=== PATIENT | male | born 1965 | race Two or more races ===

== ENCOUNTER 2019-03-19 10:25 | Emergency (ER) | payer SELFPAY | END 2019-03-19 11:15 | disposition home or self-care (01) | LOC: JERFT 10:25 ==

== ENCOUNTER 2022-05-25 15:41 | Emergency (ER) | payer OTHER ==
[2022-05-25 16:03] VITALS: BP 130/79; PULSE 98; RESP 20; TEMP 98.4; BMI 30.2
[2022-05-25] MEDS ORDERED: KETOROLAC TROMETHAMINE 30 MG/1 ML VIAL IM ONE (16:47)
[2022-05-25] MEDS ORDERED: KETOROLAC TROMETHAMINE 30 MG/1 ML VIAL ONE (16:48)
== END 2022-05-25 17:01 | disposition home or self-care (01) ==
LOC: JERFT 15:41
PROC: 3E0233Z Introduction of Anti-inflammatory into Muscle, Percutaneous Approach (ICD-10-PCS; principal; 2022-05-25)
DX: S46.911A Strain of unspecified muscle, fascia and tendon at shoulder and upper arm level, right arm, initial encounter (principal); X50.0XXA Overexertion from strenuous movement or load, initial encounter
CPT/HCPCS: 73070-TC-RT-FY; 96372; 99284-25